=== PATIENT | male | born 1990 | race Caucasian/White ===

== ENCOUNTER 2017-02-23 19:14 | Emergency (ER) | payer SELFPAY ==
[~2017-02-23 19:14] MED LIST: ULTRAM50 MG PO
[2017-02-23 22:43] VITALS: BP 113/74
== END 2017-02-23 22:43 | disposition home or self-care (01) ==
LOC: ED 19:14
DX: S01.81XA Laceration without foreign body of other part of head, initial encounter (principal); X58.XXXA Exposure to other specified factors, initial encounter; Y93.44 Activity, trampolining; Y92.89 Other specified places as the place of occurrence of the external cause; Y99.8 Other external cause status
CPT/HCPCS: J2001

== ENCOUNTER 2017-02-26 20:07 | Emergency (ER) | payer SELFPAY ==
[2017-02-26 22:54] VITALS: BP 112/79
== END 2017-02-26 22:54 | disposition home or self-care (01) ==
LOC: ED 20:07
DX: S01.111D Laceration without foreign body of right eyelid and periocular area, subsequent encounter (principal); R51 Headache; X58.XXXD Exposure to other specified factors, subsequent encounter; Y99.8 Other external cause status; Y92.89 Other specified places as the place of occurrence of the external cause